=== PATIENT | male | born 1980 | race Caucasian/White ===

== ENCOUNTER 2020-10-02 20:03 | Emergency (ER) | payer OTHER ==
[2020-10-02 21:10] LABS: HEMOGLOBIN 16.3 gm/dl (14.0-17.5); RED BLOOD COUNT 5.38 M/UL (4.20-5.50); WHITE BLOOD COUNT 17.1 K/UL (4.5-11.0)
[2020-10-03 01:13] LABS: BUN/CREATININE RATIO 15 (0-10)
== END 2020-10-03 13:15 | disposition home or self-care (01) ==
LOC: ER1 20:03
PROVIDERS: Family Medicine
DX: A41.9 Sepsis, unspecified organism (principal); E86.0 Dehydration; I95.9 Hypotension, unspecified; Z20.822 Contact with and (suspected) exposure to COVID-19
CPT/HCPCS: 36600; 51702; 70450; 71045; 80053; 80307; 82550; 82553; 82803; 82962; 83605; 83735; 83874; 84100; 84484; 85025; 85610; 87040; 93005; 96374; 96375; 99285; J2060; J2543; J7121; U0002